=== PATIENT | male | born 1985 | race Hispanic/Latino ===

== ENCOUNTER 2023-05-21 08:36 | Emergency (ER) | payer SELFPAY ==
[2023-05-21] MEDS ORDERED: Bacitracin 1 PK ONE (09:11)
[2023-05-21] MEDS ORDERED: Lidocaine 1% PF 5 ML VIAL ONE (09:12)
[2023-05-21] MEDS ORDERED: Morphine 4 MG/ML VIAL ONE (09:12)
[2023-05-21] MEDS ORDERED: Ondansetron PF 4 MG/2 ML Vial ONE (09:12)
[2023-05-21] MEDS ORDERED: CEFAZOLIN 2 GM VIAL ONE ×2 (09:12→09:17)
[2023-05-21] MEDS ORDERED: Bupivacaine PF 0.5% 30 ML VIAL ONE (09:12)
[2023-05-21] MEDS ORDERED: Boostrix 0.5 ML (Tdap) VIAL (>/=7 yrs of age) ONE (09:13)
[2023-05-21] MEDS ORDERED: Sodium Chloride 0.9% 0 ML ONE (09:17)
[2023-05-21] MEDS ORDERED: Sodium Chloride 0.9% 100 ML ONE (09:19)
== END 2023-05-21 12:27 | disposition home or self-care (01) ==
LOC: ERS 08:36
DX: S67.192A Crushing injury of right middle finger, initial encounter (principal); S61.214A Laceration without foreign body of right ring finger without damage to nail, initial encounter; S60.031A Contusion of right middle finger without damage to nail, initial encounter; W34.10XA Accidental malfunction from unspecified firearms or gun, initial encounter; Z23 Encounter for immunization
CPT/HCPCS: 90471; 90715; 96365; 96366; 96375; J2270; J2405; J3490; S0020